=== PATIENT | female | born 1980 | race American Indian/Alaskan Native ===

== ENCOUNTER 2022-04-28 11:37 | Emergency (ER) | payer SELFPAY ==
[2022-04-28 12:40] VITALS: BP 158/80
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
[2022-04-28 14:12] LABS: Basophils % (Auto) 0.3 % (0.0-1.8); Eosinophils # (Auto) 0.1 K/mm3 (0.0-0.4); Hemoglobin 11.4 gm/dl (10.1-14.3); Lymphocytes # (Auto) 3.8 K/mm3 (1.2-5.4); Lymphocytes % (Auto) 48.7 % (13.4-35.0); Mean Corpuscular HGB Conc 32 % (30-34); Monocytes # (Auto) 0.4 K/mm3 (0.0-0.8); Platelet Count 256 K/mm3 (140-440); Red Blood Count 5.25 M/mm3 (3.65-5.03)
[2022-04-28 14:28] LABS: Blood Urea Nitrogen 11 mg/dL (7-17); Calcium 9.3 mg/dL (8.4-10.2); Hemolysis Index 0
[2022-04-28 14:29] LABS: BUN/Creatinine Ratio 18
[2022-04-28 14:36] LABS: Mean Corpuscular Volume 69 fl (79-97)
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
[2022-04-28] MEDS ORDERED: HYDROcodone/ACETAMINOPHEN 5-325 MG TAB PO ONE (15:44)
[2022-04-28] MEDS ORDERED: ONDANSETRON 4 MG ODT TAB PO ONE (15:45)
== END 2022-04-28 16:15 | disposition home or self-care (01) ==
LOC: ED 11:37
DX: S06.0X0A Concussion without loss of consciousness, initial encounter (principal); Z79.899 Other long term (current) drug therapy; Y04.8XXA Assault by other bodily force, initial encounter; Y93.89 Activity, other specified; Y92.89 Other specified places as the place of occurrence of the external cause; Y99.8 Other external cause status
CPT/HCPCS: 36415; 70450; 80048; 85025; 99284